=== PATIENT | male | born 1945 | race Caucasian/White ===

== ENCOUNTER 2019-10-05 15:16 | Inpatient (IN) | payer OTHER, SELFPAY ==
[~2019-10-05] VITALS: Ht 167.6 cm; Wt 77.1 kg
[2019-10-05 16:08] LABS: BASOPHIL % 0.1 % (0-2); PLATELET COUNT 197 x10^3mcL (130-400); RED CELL DISTRIBUTION WIDTH 16.1 % (11.5-14.5)
[2019-10-05 16:48] LABS: UA SPECIFIC GRAVITY 1.025 (1.005-1.035); microscopic required? YES; urine erythrocyte NEGATIVE (NEGATIVE)
[2019-10-05 16:58] LABS: CALCIUM 7.7 mg/dL (8.5-10.1); CARBON DIOXIDE 21.8 mmol/L (21-32); CHLORIDE SERUM 101 mmol/L (98-107); CREATININE SERUM 1.7 mg/dL (0.7-1.3); GLUCOSE SERUM 105 mg/dL (74-106); SODIUM SERUM 134 mmol/L (136-145)
[2019-10-05 17:03] LABS: AMPHETAMINE QUAL UR NONE DETECTED (See below)
[2019-10-05 17:04] LABS: ALKALINE PHOSPHATASE 74 U/L (46-116); ALT/SGPT 20 U/L (16-63); AST/SGOT 22 U/L (15-37); BILIRUBIN TOTAL 0.4 mg/dL (0.20-1.00); C REACTIVE PROTEIN 5.2 mg/dL (<=0.9); LACTIC DEHYDROGENASE (LDH) 233 U/L (100-190); TOTAL PROTEIN, SERUM 6.6 g/dL (6.4-8.2)
[2019-10-05] MEDS ORDERED: ASPIRIN CHILDRE81 MG PO (17:05)
[2019-10-05] MEDS ORDERED: ZESTRIL40 MG PO (17:07)
[2019-10-05] MEDS ORDERED: MICROZIDE12.5 MG PO (17:07)
[2019-10-05] MEDS ORDERED: FORTAMET1000 MG PO (17:08)
[2019-10-05] MEDS ORDERED: ACID REDUCER20 MG PO (17:11)
[2019-10-05] MEDS ORDERED: GLIPIZIDE XL10 M1 PO (17:11)
[2019-10-05] MEDS ORDERED: CARVEDILOL ER40 MG PO (17:12)
[2019-10-05] MEDS ORDERED: ATORVASTATIN CA80 M1 PO (17:13)
[2019-10-05] MEDS ORDERED: TIROSINT50 MC1 PO (17:13)
[2019-10-05 18:54] VITALS: BP 110/63
[2019-10-05 20:46] VITALS: BP 124/64
[2019-10-05 20:48] VITALS: BP 92/58
[2019-10-05 20:54] VITALS: BP 124/64
[2019-10-06 06:01] VITALS: BP 123/76
[2019-10-06 07:20] LABS: BASOPHIL % 0.4 % (0-2); PLATELET COUNT 231 x10^3mcL (130-400)
[2019-10-06 07:57] LABS: CALCIUM 7.9 mg/dL (8.5-10.1); CARBON DIOXIDE 26.1 mmol/L (21-32); CHLORIDE SERUM 102 mmol/L (98-107); CREATININE SERUM 1.3 mg/dL (0.7-1.3); GLUCOSE SERUM 78 mg/dL (74-106); POTASSIUM SERUM 4.7 mmol/L (3.5-5.1); SODIUM SERUM 138 mmol/L (136-145); T4(THYROXINE) 8.8 ug/dL (4.7-13.3)
[2019-10-06 07:58] LABS: RED CELL DISTRIBUTION WIDTH 16.4 % (11.5-14.5)
[2019-10-06 08:45] VITALS: BP 140/75
[2019-10-06 10:12] LABS: ERYTHROCYTE SED RATE 47 mm/hr (0-20)
[2019-10-06 13:14] VITALS: BP 136/72
[2019-10-06 16:59] VITALS: BP 173/99
[2019-10-06 21:03] VITALS: BP 125/63
[2019-10-07 05:30] VITALS: BP 108/58
[2019-10-07 06:10] LABS: RAPID PLASMA REAGIN Non Reactive (Non Reactive)
[2019-10-07 07:41] LABS: BASOPHIL % 0.3 % (0-2); PLATELET COUNT 258 x10^3mcL (130-400)
[2019-10-07 07:42] LABS: RED CELL DISTRIBUTION WIDTH 16.5 % (11.5-14.5)
[2019-10-07 09:05] LABS: RHEUMATOID ARTHRITIS FACTOR 11.1 IU/mL (0.0-13.9)
[2019-10-07 09:12] VITALS: BP 121/70
[2019-10-07 13:03] VITALS: BP 120/63
[2019-10-07 18:03] VITALS: BP 140/72
[2019-10-07 21:09] VITALS: BP 120/67
[2019-10-08 05:11] VITALS: BP 117/70
[2019-10-08 07:33] LABS: BASOPHIL % 0.2 % (0-2); PLATELET COUNT 267 x10^3mcL (130-400)
[2019-10-08 07:39] LABS: RED CELL DISTRIBUTION WIDTH 16.5 % (11.5-14.5)
[2019-10-08 07:47] LABS: CALCIUM 8.1 mg/dL (8.5-10.1); CARBON DIOXIDE 23.2 mmol/L (21-32); CHLORIDE SERUM 97 mmol/L (98-107); CREATININE SERUM 1.4 mg/dL (0.7-1.3); GLUCOSE SERUM 108 mg/dL (74-106); POTASSIUM SERUM 4.1 mmol/L (3.5-5.1); SODIUM SERUM 131 mmol/L (136-145)
[2019-10-08 09:22] VITALS: BP 130/73
[2019-10-08 12:25] VITALS: BP 116/63
[2019-10-08 17:07] VITALS: BP 119/73
[2019-10-08 21:11] VITALS: BP 118/65
[2019-10-09 05:37] VITALS: BP 125/70
[2019-10-09 08:30] VITALS: BP 124/71
[2019-10-09 09:21] LABS: BASOPHIL % 0.3 % (0-2); PLATELET COUNT 363 x10^3mcL (130-400)
[2019-10-09 09:26] LABS: RED CELL DISTRIBUTION WIDTH 16.5 % (11.5-14.5)
[2019-10-09 09:41] LABS: BILIRUBIN TOTAL 0.5 mg/dL (0.20-1.00)
[2019-10-09 11:26] LABS: CALCIUM 8.7 mg/dL (8.5-10.1); CARBON DIOXIDE 24.4 mmol/L (21-32); CHLORIDE SERUM 97 mmol/L (98-107); CREATININE SERUM 1.6 mg/dL (0.7-1.3); GLUCOSE SERUM 102 mg/dL (74-106); POTASSIUM SERUM 4.7 mmol/L (3.5-5.1); SODIUM SERUM 133 mmol/L (136-145)
[2019-10-09 12:16] VITALS: BP 117/69
[2019-10-09 16:55] VITALS: BP 139/80
[2019-10-09 20:57] VITALS: BP 122/75
[2019-10-10 05:51] VITALS: BP 133/75
[2019-10-10 06:53] LABS: BASOPHIL % 0.2 % (0-2)
[2019-10-10 08:02] LABS: ALKALINE PHOSPHATASE 74 U/L (46-116); ALT/SGPT 14 U/L (16-63); AST/SGOT 25 U/L (15-37); BILIRUBIN DIRECT 0.13 mg/dL (0.0-0.2); BILIRUBIN TOTAL 0.4 mg/dL (0.20-1.00); CALCIUM 8.5 mg/dL (8.5-10.1); CHLORIDE SERUM 98 mmol/L (98-107); CREATININE SERUM 1.3 mg/dL (0.7-1.3); GLUCOSE SERUM 64 mg/dL (74-106); POTASSIUM SERUM 4.3 mmol/L (3.5-5.1); SODIUM SERUM 134 mmol/L (136-145); TOTAL PROTEIN, SERUM 7.3 g/dL (6.4-8.2)
[2019-10-10 08:06] LABS: ALBUMIN 2.5 g/dL (3.4-5.0)
[2019-10-10 08:18] LABS: PLATELET COUNT 416 x10^3mcL (130-400); RED CELL DISTRIBUTION WIDTH 16.3 % (11.5-14.5)
[2019-10-10 08:35] VITALS: BP 129/74
[2019-10-10 12:35] VITALS: BP 117/75
[2019-10-10 17:50] VITALS: BP 140/82
[2019-10-10 21:13] VITALS: BP 128/73
[2019-10-11 05:15] VITALS: BP 137/84
[2019-10-11 06:59] LABS: BILIRUBIN DIRECT 0.17 mg/dL (0.0-0.2); BILIRUBIN TOTAL 0.48 mg/dL (0.20-1.00); TOTAL PROTEIN, SERUM 7.2 g/dL (6.4-8.2)
[2019-10-11 07:01] LABS: ALBUMIN 2.5 g/dL (3.4-5.0)
[2019-10-11 08:56] VITALS: BP 129/78
[2019-10-11 13:02] VITALS: BP 130/69
[2019-10-11 16:54] VITALS: BP 141/88
[2019-10-11 21:11] VITALS: BP 135/72
[2019-10-12 06:01] VITALS: BP 141/87
[2019-10-12 07:30] LABS: BASOPHIL % 0.3 % (0-2)
[2019-10-12 07:39] LABS: ALKALINE PHOSPHATASE 74 U/L (46-116); ALT/SGPT 17 U/L (16-63); AST/SGOT 18 U/L (15-37); BILIRUBIN DIRECT 0.17 mg/dL (0.0-0.2); BILIRUBIN TOTAL 0.57 mg/dL (0.20-1.00); CALCIUM 8.7 mg/dL (8.5-10.1); CARBON DIOXIDE 24.5 mmol/L (21-32); CHLORIDE SERUM 96 mmol/L (98-107); CREATININE SERUM 1.2 mg/dL (0.7-1.3); GLUCOSE SERUM 138 mg/dL (74-106); POTASSIUM SERUM 4.6 mmol/L (3.5-5.1); SODIUM SERUM 131 mmol/L (136-145); TOTAL PROTEIN, SERUM 7.1 g/dL (6.4-8.2)
[2019-10-12 07:40] LABS: ALBUMIN 2.4 g/dL (3.4-5.0)
[2019-10-12 07:41] LABS: C REACTIVE PROTEIN 19.6 mg/dL (<=0.9)
[2019-10-12 07:59] LABS: RED CELL DISTRIBUTION WIDTH 16.6 % (11.5-14.5)
[2019-10-12 08:35] LABS: PLATELET COUNT 563 x10^3mcL (130-400)
[2019-10-12 08:56] VITALS: BP 140/78
[2019-10-12 11:56] VITALS: BP 123/71
[2019-10-12 16:26] VITALS: BP 142/78
[2019-10-12 21:17] VITALS: BP 131/68
[2019-10-13 05:29] VITALS: BP 124/69
[2019-10-13 07:24] LABS: BASOPHIL % 0.2 % (0-2)
[2019-10-13 07:50] LABS: ALBUMIN 2.3 g/dL (3.4-5.0); BILIRUBIN DIRECT 0.22 mg/dL (0.0-0.2); BILIRUBIN TOTAL 0.55 mg/dL (0.20-1.00)
[2019-10-13 08:08] LABS: PLATELET COUNT 602 x10^3mcL (130-400)
[2019-10-13 09:00] VITALS: BP 119/82
[2019-10-13 10:01] LABS: CALCIUM 8.9 mg/dL (8.5-10.1); CARBON DIOXIDE 25.6 mmol/L (21-32); CHLORIDE SERUM 98 mmol/L (98-107); CREATININE SERUM 1.3 mg/dL (0.7-1.3); GLUCOSE SERUM 70 mg/dL (74-106); POTASSIUM SERUM 4.9 mmol/L (3.5-5.1); SODIUM SERUM 133 mmol/L (136-145)
[2019-10-13 13:33] VITALS: BP 141/77
[2019-10-13 18:06] VITALS: BP 129/84
[2019-10-13 20:00] VITALS: BP 123/72
[2019-10-14 05:35] VITALS: BP 140/79
[2019-10-14 11:32] VITALS: BP 126/70
[2019-10-14 18:04] VITALS: BP 153/88
[2019-10-14 20:33] VITALS: BP 138/73
[2019-10-15 05:50] VITALS: BP 139/71
[2019-10-15 08:30] VITALS: BP 148/81
[2019-10-15 13:26] VITALS: BP 140/73
[2019-10-15 17:26] VITALS: BP 144/77
[2019-10-15 21:00] VITALS: BP 131/71
[2019-10-16 05:57] VITALS: BP 136/77
[2019-10-16 07:57] LABS: CALCIUM 8.8 mg/dL (8.5-10.1); CARBON DIOXIDE 20.7 mmol/L (21-32); CHLORIDE SERUM 94 mmol/L (98-107); CREATININE SERUM 1.6 mg/dL (0.7-1.3); GLUCOSE SERUM 450 mg/dL (74-106); POTASSIUM SERUM 4.5 mmol/L (3.5-5.1); SODIUM SERUM 130 mmol/L (136-145)
[2019-10-16 08:28] LABS: BASOPHIL % 0.2 % (0-2)
[2019-10-16 09:21] LABS: RED CELL DISTRIBUTION WIDTH 16.3 % (11.5-14.5)
[2019-10-16 09:33] VITALS: BP 159/91
[2019-10-16 10:38] LABS: PLATELET COUNT 766 x10^3mcL (130-400)
[2019-10-16 13:50] VITALS: BP 142/76
[2019-10-16 17:20] VITALS: BP 140/75
[2019-10-16 21:58] VITALS: BP 139/70
[2019-10-17 06:25] VITALS: BP 108/78
[2019-10-17 07:25] LABS: BASOPHIL % 0.1 % (0-2)
[2019-10-17 07:57] LABS: CALCIUM 8.7 mg/dL (8.5-10.1); CARBON DIOXIDE 25.7 mmol/L (21-32); CHLORIDE SERUM 94 mmol/L (98-107); CREATININE SERUM 1.5 mg/dL (0.7-1.3); GLUCOSE SERUM 440 mg/dL (74-106); POTASSIUM SERUM 5.1 mmol/L (3.5-5.1); SODIUM SERUM 128 mmol/L (136-145)
[2019-10-17 08:19] LABS: RED CELL DISTRIBUTION WIDTH 15.9 % (11.5-14.5)
[2019-10-17 09:28] VITALS: BP 125/64
[2019-10-17 11:31] LABS: PLATELET COUNT 764 x10^3mcL (130-400)
[2019-10-17 12:35] VITALS: BP 130/75
[2019-10-17 18:07] VITALS: BP 151/71
[2019-10-17 21:40] VITALS: BP 128/71
[2019-10-18 05:41] VITALS: BP 135/81
[2019-10-18 06:49] LABS: CALCIUM 9.5 mg/dL (8.5-10.1); CARBON DIOXIDE 24.3 mmol/L (21-32); CHLORIDE SERUM 96 mmol/L (98-107); CREATININE SERUM 1.4 mg/dL (0.7-1.3); GLUCOSE SERUM 326 mg/dL (74-106); POTASSIUM SERUM 4.5 mmol/L (3.5-5.1); SODIUM SERUM 129 mmol/L (136-145)
[2019-10-18 06:54] LABS: RED CELL DISTRIBUTION WIDTH 16.4 % (11.5-14.5)
[2019-10-18 06:55] LABS: BASOPHIL % 0 % (0-2)
[2019-10-18 08:55] LABS: PLATELET COUNT 793 x10^3mcL (130-400)
[2019-10-18 09:14] VITALS: BP 137/85
[2019-10-18 12:42] VITALS: BP 134/80
[2019-10-18 14:02] VITALS: BP 134/80
[2019-10-18 18:03] VITALS: BP 152/79
[2019-10-18 19:56] VITALS: BP 136/74
[2019-10-19 05:10] VITALS: BP 136/74
[2019-10-19 07:28] LABS: BASOPHIL % 0 % (0-2); RED CELL DISTRIBUTION WIDTH 16.1 % (11.5-14.5)
[2019-10-19 07:29] LABS: CALCIUM 9.1 mg/dL (8.5-10.1); CARBON DIOXIDE 24.6 mmol/L (21-32); CHLORIDE SERUM 97 mmol/L (98-107); CREATININE SERUM 1.3 mg/dL (0.7-1.3); GLUCOSE SERUM 263 mg/dL (74-106); POTASSIUM SERUM 4.4 mmol/L (3.5-5.1); SODIUM SERUM 131 mmol/L (136-145)
[2019-10-19 08:50] VITALS: BP 163/84
[2019-10-19 11:48] LABS: PLATELET COUNT 717 x10^3mcL (130-400)
[2019-10-19 12:30] VITALS: BP 139/73
[2019-10-19 17:06] VITALS: BP 144/76
[2019-10-19 20:37] VITALS: BP 122/69
[2019-10-20 05:25] VITALS: BP 127/73
[2019-10-20 08:11] VITALS: BP 141/73
[2019-10-20 11:55] VITALS: BP 136/77
[2019-10-20 13:36] VITALS: BP 112/97
[2019-10-20 16:14] VITALS: BP 136/71
== END 2019-10-20 17:18 | disposition other institution (70) | DRG 177 ==
LOC: ED 15:16 → DU 17:09
PROVIDERS: Emergency Medicine; ADMIT Internal Medicine; ATTEND Internal Medicine
DX: U07.1 COVID-19 (principal); J12.89 Other viral pneumonia; J96.91 Respiratory failure, unspecified with hypoxia; N17.9 Acute kidney failure, unspecified; G45.9 Transient cerebral ischemic attack, unspecified; I10 Essential (primary) hypertension; E78.5 Hyperlipidemia, unspecified; E11.9 Type 2 diabetes mellitus without complications; E03.9 Hypothyroidism, unspecified; E78.00 Pure hypercholesterolemia, unspecified; K21.9 Gastro-esophageal reflux disease without esophagitis; I95.9 Hypotension, unspecified; D47.3 Essential (hemorrhagic) thrombocythemia
CPT/HCPCS: 36600; 82962; 83880; 85378; 86431; 87804; 90732; G0378; J0456; J0696; J1650; J1815; J3370; J7030; J8540; Q0092; Q9967; U0003-CS